=== PATIENT | male | born 1965 | race Caucasian/White ===

== ENCOUNTER 2022-10-19 08:03 | Day surgery (SDC) | payer BC ==
[~2022-10-19 08:03] MED LIST: Acetaminophen 325 MG Tab PO SCH; Lactated Ringers 1,000 ML IV SCH; Morphine 8 MG, EPINEPHrine 0.3 MG, Cefuroxime 750 MG, Ketorolac 30 MG, Sodium Chloride ... PRN; Pregabalin 25 MG Cap PO SCH; Sodium Chloride 0.9% 10 ML Syringe FLUSH PRN; Sodium Chloride 0.9% 10 ML Syringe FLUSH SCH; oxyCODONE ER 10 MG TAB.ER PO SCH
[2022-10-19] MEDS ORDERED: oxyCODONE ER 10 MG TAB.ER PO SCH (08:30)
[2022-10-19] MEDS ORDERED: Lidocaine 1% 5 ML VIAL ONE (08:32)
[2022-10-19] MEDS ORDERED: Tranexamic Acid 1,000 MG/10 ML Vial ONE (08:33)
[2022-10-19] MEDS ORDERED: Vancomycin 1 GM SDV ONE (08:33)
[2022-10-19] MEDS ORDERED: Propofol 200 MG/20 ML SDV ONE ×2 (08:34→08:35)
[2022-10-19] MEDS ORDERED: Midazolam 1 MG/ML 2 ML SDV ONE (09:11)
[2022-10-19] MEDS ORDERED: ePHEDrine 50 MG/ML SDV ONE (09:57)
[2022-10-19] MEDS ORDERED: ceFAZolin 2 GM Vial ONE (09:57)
[2022-10-19] MEDS ORDERED: Phenylephrine 1% 10 MG/ML SDV ONE (09:57)
[2022-10-19] MEDS ORDERED: HYDROmorphone 0.5 MG/0.5 ML Syringe IVPUSH PRN (10:06)
[2022-10-19] MEDS ORDERED: fentaNYL 100 MCG/2 ML SDV IVPUSH PRN (10:06)
[2022-10-19] MEDS ORDERED: oxyCODONE 5 MG Tab PO SCH (11:22)
== END 2022-10-19 15:20 | disposition home or self-care (01) ==
LOC: JD.SDS 08:03
PROVIDERS: ATTEND Orthopaedic Surgery
DX: M16.11 Unilateral primary osteoarthritis, right hip (principal); G89.29 Other chronic pain; F41.9 Anxiety disorder, unspecified; I10 Essential (primary) hypertension; E78.00 Pure hypercholesterolemia, unspecified; I25.10 Atherosclerotic heart disease of native coronary artery without angina pectoris; Z88.8 Allergy status to other drugs, medicaments and biological substances; Z79.82 Long term (current) use of aspirin; Z79.899 Other long term (current) drug therapy
CPT/HCPCS: 0055T; 27130; 36415; 73501; 86850; 86900; 86901; 97116; 97161; A9270; C1713; C1776; J0171; J0690; J0697; J1885; J2250; J2270; J2370; J2704; J3370; J7120; 01214; J3490

== ENCOUNTER 2023-10-25 08:49 | Day surgery (SDC) | payer BC ==
[~2023-10-25 08:49] MED LIST changes: -Acetaminophen 325 MG Tab PO SCH; -Lactated Ringers 1,000 ML IV SCH; -Morphine 8 MG, EPINEPHrine 0.3 MG, Cefuroxime 750 MG, Ketorolac 30 MG, Sodium Chloride ... PRN; -Pregabalin 25 MG Cap PO SCH; -oxyCODONE ER 10 MG TAB.ER PO SCH
[2023-10-25] MEDS: Lactated Ringers 1,000 ML IV SCH (09:27)
[2023-10-25] MEDS ORDERED: Propofol 200 MG/20 ML SDV ONE ×2 (10:47→10:59)
[2023-10-25] MEDS ORDERED: Ondansetron 4 MG/2 ML SDV IVPUSH PRN (11:23)
[2023-10-25] MEDS ORDERED: fentaNYL 100 MCG/2 ML SDV IVPUSH PRN (11:23)
== END 2023-10-25 12:12 | disposition home or self-care (01) ==
LOC: JD.SDS 08:49
PROVIDERS: ATTEND Surgery
DX: Z12.11 Encounter for screening for malignant neoplasm of colon (principal); K57.30 Diverticulosis of large intestine without perforation or abscess without bleeding; E78.00 Pure hypercholesterolemia, unspecified; I10 Essential (primary) hypertension; Z88.8 Allergy status to other drugs, medicaments and biological substances; Z79.82 Long term (current) use of aspirin; Z79.899 Other long term (current) drug therapy
CPT/HCPCS: 45378; J2704; J7120